=== PATIENT | female | born 1985 | race Caucasian/White ===

== ENCOUNTER 2016-12-07 07:56 | Outpatient (CLI) | payer OTHER ==
[~2016-12-07 07:56] MED LIST: HYDROXYZINE PAM25 MG PO; IRON325 MG PO; OXYCODONE/ACETA1 TA1 PO; PRENATA1 CHW; TUMS500 MG
--- NOTE | 2016-12-07 10:48 | DIAGNOSTIC IMAGING REPORT ---
PROCEDURE: US ABDOMEN ULTRASOUND-LIMITED INDICATION: UMBILICAL HERNIA TECHNIQUE: Shields scale and color Doppler sonographic images of the umbilical region were obtained COMPARISON: None. FINDINGS: There is a fascial defect in the supraumbilical region measuring approximately 7 mm maximally. Through this, a small knuckle of bowel protrudes with the patient in the seated position. There is little significant change with Valsalva maneuver. Per the technologist, the herniation is reducible in the supine position. IMPRESSION: 1. Supraumbilical, reducible hernia containing a small knuckle of bowel.
== END 2016-12-07 20:29 | disposition home or self-care (01) ==
LOC: US SRH 07:56
DX: K42.0 Umbilical hernia with obstruction, without gangrene (principal)